=== PATIENT | male | born 1965 | race African-American/Black ===

== ENCOUNTER 2020-08-06 16:21 | Emergency (ER) | payer MEDICARE, MEDICAID ==
[~2020-08-06] VITALS: Ht 172.7 cm; Wt 93.2 kg
[2020-08-06 16:43] LABS: EOS # 0.3 (0.04-0.40); EOS % 2.1 % (0.0-4.0); HEMATOCRIT 43.7 % (42.0-52.0); HEMOGLOBIN 13.7 g/dL (13.5-18.0); LYMPH# 3.8 (1.50-4.00); MEAN CELL VOLUME 76 fl (78-100); MEAN CORPUSCULAR HEMOGLOBIN 24 pg (27-31); MEAN CORPUSCULAR HGB CONC 31 g/dL (33-37); MEAN PLATELET VOLUME 10.6 fl (7.4-10.4); NEU # 7.8 (1.40-6.50); PLATELET COUNT 460 K/mm3 (130-400); RED BLOOD COUNT 5.74 M/mm3 (4.20-5.60); RED CELL DISTRIBUTION WIDTH 15.3 % (11.5-14.5); WHITE BLOOD COUNT 12.9 K/mm3 (4.8-10.8)
[2020-08-06 16:52] LABS: ALBUMIN 4.1 g/dL (3.5-5.0)
[2020-08-06 16:53] LABS: POTASSIUM 3.7 mmol/L (3.5-5.1)
[2020-08-06 16:54] LABS: CALCIUM 9.3 mg/dL (8.3-10.5)
[2020-08-06 16:57] LABS: TOTAL BILIRUBIN 0.6 mg/dL (0.2-1.2)
[2020-08-06 17:30] LABS: URINE APPEARANCE CLEAR; URINE BILIRUBIN NEGATIVE (NEGATIVE); URINE BLOOD 250 ery/uL (NEGATIVE); URINE COLOR YELLOW; URINE GLUCOSE NEGATIVE (NEGATIVE); URINE KETONE NEGATIVE (NEGATIVE); URINE LEUKOCYTE ESTERASE NEGATIVE (NEGATIVE); URINE MUCUS PRESENT (NOT PRESENT); URINE NITRATE NEGATIVE (NEGATIVE); URINE PROTEIN(semi-quant) TRACE mg/dL (NEGATIVE); URINE UROBILINOGEN NORMAL (NORMAL)
[2020-08-06] MEDS ORDERED: CIPRO500 M1 PO (21:23)
[2020-08-06] MEDS ORDERED: FLOMAX0.4 MG PO (21:23)
[2020-08-06 21:48] VITALS: BP 157/90
== END 2020-08-06 21:48 | disposition home or self-care (01) ==
LOC: ED 16:21
PROVIDERS: Nurse Practitioner Family
DX: N20.0 Calculus of kidney (principal); F17.200 Nicotine dependence, unspecified, uncomplicated; Z87.442 Personal history of urinary calculi
CPT/HCPCS: J1885; J2270; J2405; J7030